=== PATIENT | female | born 1940 | race African-American/Black ===

== ENCOUNTER → 2019-07-13 | Outpatient (CLI) | payer OTHER ==
[~2019-07-13] VITALS: Ht 165.1 cm; Wt 77.1 kg
[~2019-07-13] MED LIST: ARAVA20 MG PO; AZITHROMYCIN 2250 MG PO; BENICAR HCT 201 EACH PO; CARDURA2 MG PO; CELLCEPT 250 M250 M1 PO; CIPROFLOXACIN500 M1 PO; COZAAR 50 MG TA50 MG PO; ENDOCET 10-3251 EACH PO; GUAIFEN-CODEIN120 ML PO; HYDROXYCHLOROQ200 M1 PO; IMODIUM MULTI-1 EACH PO; LEFLUNOMIDE20 MG PO; LEVAQUIN 500 M500 M2 PO; LIPITOR 20 MG T20 M1 PO; LOSARTAN-HCTZ1 EAC2 PO; LYRICA 50 MG50 MG PO; LYRICA150 MG PO; LYRICA200 MG PO; METHOTREXATE 22.5 MG PO; MILLIPRED DP5 M1 PO; NEXIUM PO; NEXIUM40 MG PO; NORCO 5-325 TA1 EACH PO; NORVASC10 MG PO; POTASSIUM20 PO; PREDNISOLONE 5 M5 M1 PO; PREDNISONE 10 M10 M1; PREDNISONE 20 M20 MG PO; PREDNISONE 5 MG5 MG PO; PROBIOTIC1 EAC1 PO; RESTASIS1 EACH OPHTHALMIC; SULFASALAZINE500 M4 PO; TOPAMAX 100 MG100 MG PO; VALIUM5 MG PO; ZOFRAN ODT4 MG PO; ZOFRAN4 MG PO; [UNRECOGNIZED DRUG - OTHER] PO
[2019-07-13 13:50] VITALS: BP 162/85
--- NOTE | 2019-07-13 16:21 | NUR ---
Pain Clinic Assessment: 1. History of Osteoarthritis: BACK History of Rheumatoid Arthritis: Not Applicable 2. Height: 5 ft. 5 in. 165.1 cm. Weight: 170.0 lb. oz. 77.112 kg. Patient's BMI: 28.3 3. Vital Signs: BP: 162/85 Pulse: 76 Resp: 14 Temp: 02 Sat: 97 ECG Mon: 4. Pain Intensity: 7 5. Fall Risk: Dizziness: Y Needs help standing or walking: Y Fallen in the last 3 months: N Fall risk comments: 6. Patient on Blood Thinner: None 7. History of Hypertension: Y 8. Opioid Therapy greater than 6 weeks: N Opiate Contract Signed: 9. Risk Assessment Tool Provided: LOW RISK 0/3 10. Functional Assessment Tool: 56/70 11. Recreational Drug Use: Never Drug Type: Tobacco Use: Never Smoker Tobacco Type: Amount or Packs/day: How Many Years: Alcohol Use: No Frequency: Quant:
--- NOTE | 2019-07-19 12:33 | HPC ---
[facility] [address] [place] [address] PAIN MANAGEMENT CONSULTATION Name: CHANTEL ZAVALETA Room #: REG Johanna Klarissa#: [id number] Admission: 07/13/19 Attend Phys: Ajay Levi DO Discharge: Date of : 38 Report #: [id number] THIS REPORT FOR: //name// CC: Douglas Hobson MD DATE OF SERVICE: 07/13/2019 CHIEF COMPLAINT: Low back pain, bilateral lower extremity pain with paresthesias. HISTORY OF PRESENT ILLNESS: As you know, the patient is a very pleasant 79-year-old female who has a longstanding history of low back pain, bilateral lower extremity pain with paresthesias. The patient indicates pain began 04/16/2018. She denies specific injury or trauma. She has trialed conservative treatment options including iqwn-dvx-jstokuu medications, rest, relaxation and physical therapy. Unfortunately, these did not provide much in the way of improvement. She then discussed her case with her primary care physician, Dr. Douglas Giang, who trialed options for treatment including medication management, but this again did not provide much in the way of improvement. The patient was subsequently then referred to see Dr. Temo Hobson with [facility] who reviewed the patient's case, advising the patient further surgical treatment, did not appear to be appropriate at this time. The patient did have a L4-S1 posterior lateral fusion in 2013, which unfortunately initially provided good improvement, but subsequent she began to see exacerbation of symptoms. After seeing Dr. Hobson it was determined that she might be a candidate for spinal cord stimulator. The patient was then referred to our clinic to discuss that possibility. The patient indicates today pain is continuous steady and constant with rhythmic exacerbations. She states her pain is burning, shooting, aching, gnawing, throbbing, sharp, stabbing when describing pain, places current pain score 7/10, daily average at 7/10, worst pain has been as 8/10. The patient states that pain is exacerbated with any type of stretching, reaching, standing or walking, improves with "nothing to date." She has been referred to our service to discuss the possibility of undergoing spinal cord stimulator trial implantation to determine if this device would be successful alleviating symptoms. PAST MEDICAL HISTORY: 1. Hypertension. 2. Rheumatoid arthritis. 3. History of cerebrovascular accidents with residual left-sided weakness. 4. Tuberculosis. 5. Chronic lung disease. 6. [place] [address] PAIN MANAGEMENT CONSULTATION Name: CHANTEL ZAVALETA Room #: REG CLI [facility].#: [id number] Admission: 07/13/19 Attend Phys: Ajay Levi DO Discharge: Date of : 38 Report #: [id number] 7. Osteoarthritis. 8. History of cancer. PAST SURGICAL HISTORY: 1. Partial hysterectomy. 2. Complete hysterectomy with oophorectomy. 3. Hand surgery with tendon release. 4. Sinus surgery. 5. L4 through S1 posterior fusion. 6. Knee arthroscopy. SOCIAL HISTORY: The patient denies tobacco, alcohol, IV or illicit drug use. She is retired in 2013, not receiving workmen's compensation nor is she trying to obtain discrete benefits. She is not in litigation in regards to pain, accompanied by her present in room today. REVIEW OF SYSTEMS: Positive for fever, night sweats, fatigue and weakness, frequent and recurrent headaches, wearing corrective eyewear, blurred and double vision, cataracts, sore throat with voice changes, shortness of breath with walking and/or lying flat, asthma, wheezing, constipation, interspersed with diarrhea, frequent urination, nocturia, numbness and tingling sensations, stroke with left-sided residual weakness, excessive thirst, urination, bleeding and bruising tendencies. All other review of systems negative per 12-point review of systems other than those listed in history of present illness. Pain impact score 47 of 70 indicating moderate to severe interference with daily activities secondary to pain. ALLERGIES: PENICILLIN and CODEINE. CURRENT MEDICATIONS: CellCept 250 mg twice a day, atorvastatin 20 mg once a day, prednisone 5 mg 3 tabs per day, Lyrica 200 mg 3 times a day, losartan 50 mg once a day, Restasis 1 drop twice a day, sulfasalazine 500 mg twice a day, Arava 20 mg once a day, amlodipine 10 mg once a day, Cardura 2 mg once a day, Percocet 10/325 one tab every 4 hours p.r.n. for pain. IMAGING: MRI lumbar spine obtained 07/26/2018 shows pedicle screws at L5-S1 bilaterally, moderate posterior L3-L4 disk extrusion with extruded fragment extending superiorly on the right, anterior subluxation of the L4 and L5 increase in 06/11/2013imaging, grade 2 spondylolisthesis of L5-S1, increased since 06/2013 imaging, large posterior L5-S1 disk extrusion extending superiorly to the right. PQRS: The patient has known arthritic changes of the lumbar spine, bilateral hips and knees. No rheumatoid arthritis. She is placing pain intensity as 7/10. She is a fall risk, but has not had fall in last 3 months. She is [facility] [address] [place] [address] PAIN MANAGEMENT CONSULTATION Name: CHANTEL ZAVALETA Room #: [facility]#: [id number] Admission: 07/13/19 Attend Phys: Ajay Levi DO Discharge: Date of : 38 Report #: [id number] utilizing ambulatory devices for balance. She is not on blood thinners. She is treated for hypertension. She is on chronic opioids, but has a low opioid addiction potential. Pain impact score 47 of 70 indicating severe interference of daily activities secondary to pain. PHYSICAL EXAMINATION: VITAL SIGNS: Blood pressure 162/85, pulse 76, respiratory rate 14 and unlabored. The patient is 97% on room air. Height 5 feet 5 inches tall, weight 170 pounds, BMI calculated 28.3. GENERAL: Well-developed, well-nourished, well-hydrated 79-year-old female appearing stated age, placing pain score today at 7/10. HEENT: Normocephalic, atraumatic. Pupils equal, round, reactive to light. Extraocular muscles are intact. Sclerae nonicteric without injection. NEUROLOGIC: Cranial nerves 2-12 grossly intact. Speech fluent. The patient deemed a good historian. LUNGS: Clear, no wheeze, rhonchi or rales. CARDIOVASCULAR: Regular. No appreciable gallop, no rub. ABDOMEN: Soft, nontender, nondistended, normoactive bowel sounds. EXTREMITIES: Show no clubbing, no cyanosis, and no edema. MUSCULOSKELETAL: Lower extremity strength appears symmetrical 5/5. She is intact to light touch from L1 through S2 dermatomes. Deep tendon reflexes are diminished bilaterally, but appear symmetrical. Muscle bulk and tone is symmetrical in comparing left lower extremity to right. Ankle clonus negative. Babinski is negative. Seated straight leg raising negative. Supine straight leg raising positive, mainly on the right at approximately 60 degree angle. ASSESSMENT: 1. Symptomatic lumbar radiculopathy. 2. 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 3. Failed lumbar spine surgery. 4. Lumbar degeneration. 5. Chronic intractable pain. PLAN: 1. Based on today's physical exam and history the patient provides, the description the patient uses in regards to pain as well as location of symptoms, the likely source of the patient's pain is lumbar radiculopathy. We reviewed the patient's MRI from 07/2018 which shows changes at the L3-L4 level and at the L5-S1 level. The patient has been determined a nonsurgical candidate at this time by Neurosurgery and advised to look towards more conservative treatment options. She was referred to our clinic specifically to discuss the possibility of a spinal cord stimulator as a possible treatment option. We also discussed with the patient the other treatment options available. Following was discussed today. 2. We discussed physical therapy, stretching exercise, core strengthening as a treatment option. We discussed suggestions and adjustments in medication, [address] [address] PAIN MANAGEMENT CONSULTATION Name: CHANTEL ZAVALETA Room #: REG MAMI Cyr#: [id number] Admission: 07/13/19 Attend Phys: Ajay Levi DO Discharge: Date of : 38 Report #: [id number] though she is at the top dose of Lyrica and she is currently on oxycodone. There may be some other suggestions for treatment to add adjunctive treatment options such as addition of nortriptyline, amitriptyline or Cymbalta for neuropathic pain and rotation from oxycodone to the long-acting opioid as another treatment option. We also discussed the spinal cord stimulator for which the patient was referred to our clinic and ultimately surgical treatment options. After reviewing risks and benefits of all proposed treatment options, the patient chose to begin the process of spinal cord stimulator evaluation. 3. The patient will be sent for psychiatric evaluation. This is part of the requirements by Medicare and all third democrat payers prior to the patient having the approval to undergo trial implantation. If the patient has no psychopathology that would preclude us from moving forward with this treatment option, we would then have the patient return to discuss those findings of the psychiatric evaluation, again, if no psychopathology, we will then begin scheduling of the patient to undergo the procedure. The patient was given the names and phone numbers of the psychiatrist that do the testing for spinal cord stimulator today. She will contact them at her earliest convenience. Once she has the appointment and has completed the psychiatric evaluation, she is to call our clinic so that we can begin watching for paperwork to review. 4. No medication changes made at today's visit. The patient will continue current medical therapy as previously prescribed. 5. The patient was given information both in digital and written form in regards to a spinal cord stimulator. The patient will review this information prior to her psychiatric evaluation. If she has any questions or concerns, contact our clinic. 6. We wish to thank Dr. Temo Hobson for the opportunity to see the patient in consultation. We will keep you apprised of her progress towards a spinal cord stimulator trial. We will also keep you apprised once she has completed the trial whether or not it was effective and permanent implant would be recommended. Again, we wish to thank Dr. Hobson for this opportunity. <ELECTRONICALLY SIGNED> By: Ajay Levi DO 07/19/19 [id number] Ajay Levi, DO /nt
== END ==
LOC: PAIN 06:54
DX: M51.16 Intervertebral disc disorders with radiculopathy, lumbar region (principal); M47.26 Other spondylosis with radiculopathy, lumbar region; I10 Essential (primary) hypertension; M06.9 Rheumatoid arthritis, unspecified; M19.90 Unspecified osteoarthritis, unspecified site; Z86.73 Personal history of transient ischemic attack (TIA), and cerebral infarction without residual deficits; Z98.890 Other specified postprocedural states

== ENCOUNTER → 2019-09-13 | Outpatient (CLI) | payer OTHER ==
[~2019-09-13] VITALS: Ht 165.1 cm; Wt 66.7 kg
[2019-09-13 07:06] VITALS: BP 155/83
--- NOTE | 2019-09-13 07:17 | NUR ---
Pain Clinic Assessment: 1. History of Osteoarthritis: BACK History of Rheumatoid Arthritis: Not Applicable 2. Height: 5 ft. 5 in. 165.1 cm. Weight: 147.0 lb. oz. 66.679 kg. Patient's BMI: 24.5 3. Vital Signs: BP: 155/83 Pulse: 78 Resp: 20 Temp: 02 Sat: 93 ECG Mon: 4. Pain Intensity: 7 5. Fall Risk: Dizziness: N Needs help standing or walking: N Fallen in the last 3 months: N Fall risk comments: 6. Patient on Blood Thinner: None 7. History of Hypertension: Y 8. Opioid Therapy greater than 6 weeks: N Opiate Contract Signed: 9. Risk Assessment Tool Provided: LOW RISK 0 10. Functional Assessment Tool: 56/70 11. Recreational Drug Use: Never Drug Type: Tobacco Use: Never Smoker Tobacco Type: Amount or Packs/day: How Many Years: Alcohol Use: No Frequency: Quant:
--- NOTE | 2019-09-13 13:44 | HPC ---
[facility] [address] [place] [address] PAIN MANAGEMENT CONSULTATION Name: CHANTEL ZAVALETA Room #: REG MAMI MuñozJunaid#: [id number] Admission: 09/13/19 Attend Phys: Ajay Levi DO Discharge: Date of : 38 Report #: [id number] THIS REPORT FOR: cc: Douglas Giang MD, Douglas James MD Johnson, James E. DO ~ DATE OF SERVICE: 09/13/2019 REFERRING PHYSICIAN: Dr. Douglas Giang, primary care physician. CHIEF COMPLAINT: Low back pain, bilateral lower extremity pain with paresthesias. HISTORY OF PRESENT ILLNESS: As you know, the patient is a very pleasant 79-year-old female with longstanding history of low back pain, bilateral lower extremity pain with paresthesias. The patient reports pain began on 04/16/2018. She denies specific injury or trauma. She trialed conservative treatment options including rmmf-chp-teqyzqf medications, rest, relaxation and physical therapy, but did not see much in the way of improvement. She was seen by Dr. Temo Hobson, neurosurgeon, at [facility], who advised the patient to trial more conservative treatment options before looking toward surgical options. She was sent back to our clinic. She was referred to our clinic to undergo spinal cord stimulator trial implantation. She was seen in consultation on 07/13/2019, diagnosed with chronic lumbar radiculopathy secondary to the displacement of lumbar intervertebral disk and was established appointments with Psychiatry for evaluation to determine if she is a candidate from psychosocial standpoint to undergo a trial implantation. She has successfully completed psychiatric evaluation and has established today's appointment to undergo spinal cord stimulator trial implantation to determine if her symptoms will improve with the device. She is placing pain today at a level of 7/10. She denies new injury, trauma or changes in medical management since our last visit. ALLERGIES: PENICILLIN and CODEINE. CURRENT MEDICATIONS: CellCept, atorvastatin, prednisone, losartan, Restasis, sulfasalazine, Arava, amlodipine, Cardura, Percocet. SOCIAL HISTORY: The patient denies tobacco use. Denies IV or illicit drug use. Denies any chronic alcohol use. She has been retired since 2013, accompanied by daughter present in room today. IMAGING: No new imaging available. [address] [address] PAIN MANAGEMENT CONSULTATION Name: WAQARCHANTEL Room #: REG [facility] Klarissa#: [id number] Admission: 09/13/19 Attend Phys: Ajay Levi DO Discharge: Date of : 38 Report #: [id number] PQRS: The patient has known arthritic changes of the lumbar spine, bilateral hips and knees. No rheumatoid arthritis. She is placing pain today at 7/10. She is a fall risk, but has not had a fall in last 3 months. She is not on blood thinners, but is treated for hypertension. She is on chronic opioid, but has a low opioid addiction potential. Pain impact score is 56/70 indicating severe interference of daily activities secondary to pain. PHYSICAL EXAMINATION: VITAL SIGNS: Blood pressure 155/83, pulse 78, respiratory rate 20 and unlabored. The patient 93% on 2 liters nasal cannula. Height 5 feet 5 inches tall, weight 147 pounds, BMI calculated 24.5. GENERAL: Well-developed, well-nourished, well-hydrated 79-year-old kyphotic and scoliotic female presenting with pain level of 7/10. HEENT: Normocephalic, atraumatic. Pupils equal, round and reactive to light. The patient does have a nasal cannula in position, is running at 2 liters. EXTREMITIES: Show no clubbing, no cyanosis, no edema. MUSCULOSKELETAL: Lower extremity strength remains equal and symmetrical 5/5, intact to light touch from L1 through S2 dermatomes. Deep tendon reflexes are diminished bilaterally, but remain symmetrical. Seated straight leg raising negative. Supine straight leg raising positive on the right. ASSESSMENT: 1. Symptomatic lumbar radiculopathy. 2. Displacement of lumbar intervertebral disk with radiculopathy. 3. Failed lumbar spine surgery. 4. Lumbar degeneration. 5. Chronic intractable pain. PLAN: 1. The patient has returned today in followup visit having received precertification to undergo spinal cord stimulator trial implantation. We have established today's appointment for the patient to undergo the procedure. She has been advised of the risks and the benefits of this procedure. These risks include but are not necessarily limited to bleeding, bruising, infection, worsening pain, no relief of pain, also risk of temporary or permanent muscle weakness, temporary or permanent nerve damage, possible paralysis, post-dural puncture headache and . The patient states understood and wished to proceed. 2. No medication changes made at today's visit. The patient will continue current medical therapy as prior prescribed. 3. We will see the patient back in followup visit next week to undergo explantation of device. At that time, we will discuss the efficacy of today's she will discuss the efficacy of the spinal cord stimulator and determine if recommendations to permanent implant would be provided. The patient was given phone numbers for the [email or web address] device merchandiser retail representative for issues with chronic pain and capture of pain with the device where she was given on-call pain [address] [address] PAIN MANAGEMENT CONSULTATION Name: CHANTEL ZAVALETA Room #: REG [facility]#: [id number] Admission: 09/13/19 Attend Phys: Ajay Levi DO Discharge: Date of : 38 Report #: [id number] physician number for any concerns or questions she might have in regards to the device itself and any infectious concerns. She was established next week's appointment today's visit. PROCEDURE NOTE DESCRIPTION OF PROCEDURE: Two lead spinal cord stimulator trial implantation under fluoroscopic guidance. After obtaining written consent, a 22-gauge IV Hep-Lock was placed in the patient's left upper extremity. The patient was given IV prophylactic antibiotic infused over 30 minutes prior to procedure. The patient was then taken to the fluoroscopy suite, placed in a prone position with 2 pillows under the abdomen to decrease the lumbar lordosis and increased the thoracic kyphosis. Cardiopulmonary monitoring was established and the patient's vital signs were monitored throughout the procedure. The patient's thoracolumbar spine was then prepped and draped in aseptic fashion using chlorhexidine and draped in sterile fashion. There was no IV sedation given prior to procedure. AP fluoroscopic view was obtained to identify and neeraj the midline position of the T10 through L2 spinous processes. Skin was anesthetized with 1% lidocaine with a total of 7 mL being provided on the right side and 7 mL being provided on the left side. This was prior to the introduction of the 14-gauge 4-inch Tuohy needles. The skin entry site was at the approximate level of the T11 superior endplates. Needle was advanced using a right paramedian approach at approximately 45 degree angle. Loss of resistance to air was utilized to verify placement within the epidural space. Epidural space was entered at the T12-L1 interspace. A lateral fluoroscopic view was obtained to confirm the position of the tip of the Tuohy needle within the epidural space. Aspiration noted to be negative for heme or cerebrospinal fluid. The patient did not complain of pain or paresthesias during needle placement. Spinal cord stimulating lead was then advanced through the Tuohy needle under direct visualization within the midline. The tip of the stimulating lead was aligned with the midline of the T7 vertebral body. It was located within the midline of the spinal canal. At this point, our attention was then directed to the left side. AP fluoroscopic imaging was obtained to identify and neeraj the midline position of the T10 through L2 spinous processes. The skin entry site was reestablished directly over the superior endplate of L2 vertebral body. Needle was advanced using a left paramedian approach to the midline at 45 degree angle. Loss of resistance to air was utilized to verify placement within the epidural space. Epidural space was entered at the T12-L1 interspace. Lateral fluoroscopic view obtained to confirm the position of the Tuohy needle within the epidural space. Aspiration negative for heme or cerebrospinal fluid. The patient did not complain of pain or paresthesias during needle placement. Spinal cord stimulating lead was then advanced through the Tuohy needle within the midline. [address] [address] PAIN MANAGEMENT CONSULTATION Name: CHANTEL ZAVALETA Room #: REG MAMI Cyr#: [id number] Admission: 09/13/19 Attend Phys: Ajay Levi DO Discharge: Date of : 38 Report #: [id number] Tip of the stimulating lead was aligned with the inferior endplate of T7 and located within the midline. At this point, the leads were then anchored to the back with Steri-Strips and OpSite bandaging. Leads were then placed into their stimulating device and we confirmed that the device was working appropriately. We rechecked position of the leads after taping and anchoring to the back. There was no movement. The patient tolerated procedure well, carefully escorted to the recovery room in stable condition. After a 30-minute timeframe of educating the patient on the device itself and how to utilize the machine during the trial as well as advised the patient not to get the area wet or to be highly active. The patient was then discharged home. She was given phone numbers for [email or web address] device merchandiser retail representative for assistance in pain coverage. If the patient is experiencing increased pain at the insertion site, any type of drainage or changes that are concerning for infection. She will contact the on-call pain physician. <ELECTRONICALLY SIGNED> By: Ajay Levi DO 09/13/19 [id number] Ajay Levi DO /nt
== END | disposition home or self-care (01) ==
LOC: PAIN 06:44
DX: M51.16 Intervertebral disc disorders with radiculopathy, lumbar region (principal); M96.1 Postlaminectomy syndrome, not elsewhere classified; G89.29 Other chronic pain; I10 Essential (primary) hypertension; M19.90 Unspecified osteoarthritis, unspecified site; Z98.890 Other specified postprocedural states; Z79.899 Other long term (current) drug therapy; Z88.0 Allergy status to penicillin; Z88.8 Allergy status to other drugs, medicaments and biological substances

== ENCOUNTER → 2019-09-16 | Outpatient (CLI) | payer OTHER ==
[~2019-09-16] VITALS: Ht 165.1 cm; Wt 73.6 kg
[2019-09-16 12:58] VITALS: BP 127/82
--- NOTE | 2019-09-16 13:03 | NUR ---
Pain Clinic Assessment: 1. History of Osteoarthritis: BACK History of Rheumatoid Arthritis: Not Applicable 2. Height: 5 ft. 5 in. 165.1 cm. Weight: 162.2 lb. oz. 73.573 kg. Patient's BMI: 27.0 3. Vital Signs: BP: 127/82 Pulse: 82 Resp: 16 Temp: 02 Sat: 92 ECG Mon: 4. Pain Intensity: 8 5. Fall Risk: Dizziness: N Needs help standing or walking: Y Fallen in the last 3 months: N Fall risk comments: 6. Patient on Blood Thinner: None 7. History of Hypertension: Y 8. Opioid Therapy greater than 6 weeks: N Opiate Contract Signed: 9. Risk Assessment Tool Provided: LOW RISK 0 10. Functional Assessment Tool: 56/ 11. Recreational Drug Use: Never Drug Type: Tobacco Use: Never Smoker Tobacco Type: Amount or Packs/day: How Many Years: Alcohol Use: No Frequency: Quant:
--- NOTE | 2019-10-26 12:25 | HPC ---
[facility] [address] [place] [address] PAIN MANAGEMENT CONSULTATION Name: CHANTEL ZAVALETA Room #: REG MAMI Cyr#: [id number] Admission: 09/16/19 Attend Phys: Ajay Levi DO Discharge: Date of : 38 Report #: [id number] THIS REPORT FOR: cc: Douglas Giang MD, Douglas James MD Johnson, James E. DO ~ REFERRING PHYSICIAN: Dr. Temo Hobson. PRIMARY CARE PHYSICIAN: Douglas Giang MD CHIEF COMPLAINT: Low back pain, bilateral lower extremity pain with paresthesias and spinal cord stimulator lead adjustment. HISTORY OF PRESENT ILLNESS: As you know, the patient is a very pleasant 79-year-old female who returns today in followup visit, now 3 days post spinal cord stimulator implantation with loss of analgesic benefit. There is concern that the patient may have displaced the leads given her severe kyphosis and torticollis. The patient was doing fairly well from a pain standpoint and acutely lost analgesic benefit. We have made today's appointment for the patient to return to review the positioning of the leads and determine if reprogramming or repositioning would be necessary. She returns today in followup visit reporting a pain level of 8/10. ALLERGIES: PENICILLIN, CODEINE. CURRENT MEDICATIONS: See extensive list in chart. HISTORY: The patient denies tobacco, alcohol, IV or illicit drug use. She retired in 2013. She is accompanied by a family member present in room today. IMAGING: No new imaging available. PQRS: The patient has known arthritic changes of the lumbar spine, bilateral hips, knees and cervical spine. No rheumatoid arthritis. She is placing pain intensity 8/10. She has a fall risk, but has had no falls in the last 3 months. She is utilizing a wheelchair at the clinic today. She is not on blood thinners. She is treated for hypertension. She is not on chronic opioids and has a low opiate addiction potential. Pain impact score 56/70, severe interference of daily activities secondary to pain. PHYSICAL EXAMINATION: VITAL SIGNS: Blood pressure 127/82, pulse 82, respiratory rate 16 and unlabored. She is 92% on room air. Height 5 feet 5 inches tall, weight 162.2 pounds and BMI calculated 27.2. GENERAL: Well-developed, well-nourished, well-hydrated kyphotic 79-year-old female, placing current pain score at 8/10. [place] [address] PAIN MANAGEMENT CONSULTATION Name: CHANTEL ZAVALETAINE [facility] #: [facility] [id number] Admission: 09/16/19 Attend Phys: Ajay Levi DO Discharge: Date of : 38 Report #: [id number] HEENT: Normocephalic, atraumatic. Pupils equal, round, reactive. Speech is fluent. EXTREMITIES: Show no clubbing, no cyanosis, no edema. MUSCULOSKELETAL: Lower extremity strength is symmetrical 5/5, intact to light touch from L1 through S2 dermatomes. Deep tendon reflexes are diminished bilaterally. Seated straight leg raising negative. Supine straight leg raising positive. There is 2 spinal cord stimulator leads in position, they are taped appropriately. There is no drainage in the area. ASSESSMENT: 1. Symptomatic lumbar radiculopathy. 2. Displacement of lumbar intervertebral disk with radiculopathy. 3. Failed lumbar spine surgery. 4. Lumbar degeneration. 5. Chronic intractable pain. PLAN: 1. The patient returns today in followup visit having some benefit with the spinal cord stimulator that was acutely lost. There was concern that the patient may have had displacement of the leads. Given her unusual body habitus, there is a strong possibility that the leads did migrate a cephalad. We had the patient return today to reimage the area and determine if adjustments need to be made. The patient indicates pain level today of 8/10. She returns for imaging and readjustment if necessary and repositioning of the leads if required. 2. We placed the patient under the fluoroscopic imaging device, it was noted that both leads had migrated significantly cephalad. These leads were then repositioned back to the appropriate area and taped in place with Steri-Strips and OpSite bandaging. Imaging of the positioning of the leads at this visit are on the chart. 3. We spent over 25 minutes of time reprogramming the patient's device to maximize for potential analgesic benefit. The patient left our facility in good condition. Reprogramming was performed successfully. The patient was noticing some analgesic benefit prior to discharge. <ELECTRONICALLY SIGNED> By: Ajay Levi DO 10/26/19 1225 [id number] Ajay Levi DO /nt
== END ==
LOC: PAIN 09:51
DX: M51.16 Intervertebral disc disorders with radiculopathy, lumbar region (principal); G89.4 Chronic pain syndrome; Z79.891 Long term (current) use of opiate analgesic; Z79.899 Other long term (current) drug therapy; Z88.0 Allergy status to penicillin; Z88.5 Allergy status to narcotic agent

== ENCOUNTER → 2019-09-20 | Outpatient (CLI) | payer OTHER ==
[~2019-09-20] VITALS: Ht 165.1 cm; Wt 75.7 kg
[2019-09-20 10:12] VITALS: BP 140/77
--- NOTE | 2019-09-20 10:32 | NUR ---
Pain Clinic Assessment: 1. History of Osteoarthritis: BACK History of Rheumatoid Arthritis: Not Applicable 2. Height: 5 ft. 5 in. 165.1 cm. Weight: 166.8 lb. oz. 75.660 kg. Patient's BMI: 27.8 3. Vital Signs: BP: 140/77 Pulse: 70 Resp: 14 Temp: 02 Sat: 97 ECG Mon: 4. Pain Intensity: 7 5. Fall Risk: Dizziness: N Needs help standing or walking: Y Fallen in the last 3 months: N Fall risk comments: 6. Patient on Blood Thinner: None 7. History of Hypertension: Y 8. Opioid Therapy greater than 6 weeks: N Opiate Contract Signed: 9. Risk Assessment Tool Provided: LOW RISK 0 10. Functional Assessment Tool: 11. Recreational Drug Use: Never Drug Type: Tobacco Use: Never Smoker Tobacco Type: Amount or Packs/day: How Many Years: Alcohol Use: No Frequency: Quant:
--- NOTE | 2019-09-20 15:47 | HPC ---
[facility] [place] [address] PAIN MANAGEMENT CONSULTATION Name: CHANTEL ZAVALETA Room #: REG MAMI Muñoz.#: [id number] Admission: 09/20/19 Attend Phys: Ajay Levi DO Discharge: Date of : 36 Report #: [id number] THIS REPORT FOR: cc: Douglas Giang MD, Douglas James MD Johnson, James E. DO ~ DATE OF SERVICE: 09/20/2019 CHIEF COMPLAINT: Low back pain, bilateral lower extremity pain, right knee pain. HISTORY OF PRESENT ILLNESS: As you know, the patient is a very pleasant 79-year-old female who has returned today in followup visit for explantation of the spinal cord stimulating device. The patient reports approximately 25% improvement in overall pain with the device. She is more fixated on her right knee pain today. She indicates pain currently a level of 6-7/10 despite the fact that the device remains on. She reports some improvement in her left buttock and right buttock pain, but continues to experience right knee pain. She provides pain level of 7/10. She describes the pain as sharp, aching and tender, exacerbated with reaching, walking and standing; improves with sitting, lying down and medications. She returns today for explantation of spinal cord stimulating device that was requested to be trialled by Dr. Temo Hobson, the patient's neurosurgeon. ALLERGIES: PENICILLIN AND CODEINE. CURRENT MEDICATIONS: CellCept, atorvastatin, prednisone, Lyrica, losartan, Restasis, sulfasalazine, Arava, amlodipine, Cardura, Percocet. SOCIAL HISTORY: The patient denies tobacco, alcohol, IV or illicit drug use. She retired in 2013. She is accompanied by a family member present in room. IMAGING: No new imaging available. PQRS: The patient has known arthritic changes of the lumbar spine, bilateral hips and knees. No rheumatoid arthritis. She is placing pain intensity today at 7/10. She is a fall risk, but has not had a fall in last 3 months. She is utilizing a roller walker and cane at home and a wheelchair here at the office. She is not on blood thinners, but is treated for hypertension. She has a low opioid addiction potential and is not on chronic opioids. Pain impact is 56/70, severe interference of daily activities secondary to pain. PHYSICAL EXAMINATION: VITAL SIGNS: Blood pressure 140/77, pulse 70, respiratory rate 14 and [facility] [address] [place] [address] PAIN MANAGEMENT CONSULTATION Name: CHANTEL ZAVALETA Room #: REG CLI [facility].#: [id number] Admission: 09/20/19 Attend Phys: Ajay Levi DO Discharge: Date of : 38 Report #: [id number] unlabored. The patient is 97% on room air. Height 5 feet 5 inches tall, weight 166.8 pounds, BMI calculated at 27.8. GENERAL: Well-developed, well-nourished, well-hydrated, kyphotic, scoliotic 79-year-old female appearing her stated age, pain is rated around 7/10. HEENT: Normocephalic, atraumatic. Pupils equal, round, reactive to light. NECK: Neck is in a rotated and flexed position towards the left. EXTREMITIES: Show no clubbing, no cyanosis, no edema. MUSCULOSKELETAL: Lower extremity strength appears symmetrical, but deconditioned. She is intact to light touch from L1 through S2 dermatomes. Straight leg raising is positive in a supine position. ASSESSMENT: 1. Symptomatic lumbar radiculopathy. 2. Displacement of lumbar intervertebral disk with radiculopathy. 3. Failed lumbar spine surgery. 4. Lumbar degeneration. 5. Chronic intractable pain. PLAN: 1. The patient returns today in followup visit for explantation of spinal cord stimulating device. The patient reports about a 25% improvement in overall pain with the device itself. She is having difficulty discerning the difference between her typical lumbar radicular symptoms and her right knee pain. She is most fixated on the right knee today. She has extremely arthritic right knee and has been advised by Orthopedics and needs to be replaced, but she has been resistant to do so. As far as the spinal cord stimulating device, she wishes to review the efficacy of this over the next couple of days while the device is removed to determine if she does wish to move forward with permanent implant. I advised the patient if she does not see a greater than 70% improvement in overall pain with this device, she should not move forward with the device as further improvement will not be possible with the device itself. What she received in the trial is what can be guaranteed to be provided in the permanent implant. She will consider this option. She will be contacting her neurosurgeon who referred the patient for the trial. 2. No medication changes made at today's visit. The patient will continue current medical therapy as prior prescribed. 3. We will see the patient back in followup visit on an as needed basis if interventional treatments are requested. We are pleased to see the patient had a chance to trial the device and did receive improvement in symptoms. We will see her back for interventional treatments. PROCEDURE NOTE DESCRIPTION OF PROCEDURE: Explantation of spinal cord stimulating leads. The patient was placed in a seated position. We removed all Steri-Strips and [address] [address] PAIN MANAGEMENT CONSULTATION Name: CHANTEL ZAVALETA [facility] [id number] Admission: 09/20/19 Attend Phys: Ajay Levi DO Discharge: Date of : 38 Report #: [id number] OpSite bandaging. There was no erythema or drainage at the site of insertion of the catheters. There were 2 catheters in position. Each catheter was removed without complications. Both catheters had the 8 electrodes and their tips intact upon removal. There was no pain or paresthesias with this explantation. Sterile bandages were placed over each injection sites. The patient was advised to watch for any excessive drainage or increased back pain in the area. If she notes any drainage, contact our clinic. The patient was given numbers to contact our clinic if she notes any of these concerning findings. <ELECTRONICALLY SIGNED> By: Ajay Levi DO 09/20/19 1547 [id number] Ajay Levi DO /nt
== END ==
LOC: PAIN 06:48
DX: M51.16 Intervertebral disc disorders with radiculopathy, lumbar region (principal); G89.29 Other chronic pain; Z88.0 Allergy status to penicillin; Z88.5 Allergy status to narcotic agent; Z68.27 Body mass index [BMI] 27.0-27.9, adult; Z79.899 Other long term (current) drug therapy; Z98.890 Other specified postprocedural states